=== PATIENT | female | born 1940 | race Caucasian/White ===

== ENCOUNTER → 2016-09-18 | Day surgery (SDC) | payer MEDICARE ==
[~2016-09-18] MED LIST: ADVI200T PO; ALIG4CAP PO; BIOT50005 PO; CALCTAB75 PO; DIGECAP6 PO; FOSA70TA PO; GLUC250C5 PO; LACTATED RINGER'S 1,000 ML BAG IV ONE; MULTCAP20 PO; OMEP20TA39 PO; PROPOFOL 200 MG/20 ML AMP IV ONE; VITA-83 PO; ZYRT10TA12 PO; [UNRECOGNIZED DRUG - CODE] PO
== END | disposition home or self-care (01) ==
LOC: ESDC 11:33
PROVIDERS: ATTEND Internal Medicine Gastroenterology
DX: K22.70 Barrett's esophagus without dysplasia (principal); R13.10 Dysphagia, unspecified; K22.2 Esophageal obstruction; K22.4 Dyskinesia of esophagus; K22.9 Disease of esophagus, unspecified
CPT/HCPCS: 00740; 43239; 43248; 88305; J3010; J7120